=== PATIENT | female | born 2000 | race American Indian/Alaskan Native ===

== ENCOUNTER 2021-06-08 10:18 | Emergency (ER) | payer SELFPAY ==
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
[2021-06-08 11:52] VITALS: BP 129/71
== END 2021-06-08 11:51 | disposition home or self-care (01) ==
LOC: ED 10:18
DX: S63.690A Other sprain of right index finger, initial encounter (principal); S50.11XA Contusion of right forearm, initial encounter; S00.511A Abrasion of lip, initial encounter; V87.7XXA Person injured in collision between other specified motor vehicles (traffic), initial encounter; Y93.89 Activity, other specified; Y92.488 Other paved roadways as the place of occurrence of the external cause; Y99.8 Other external cause status
CPT/HCPCS: 99282

== ENCOUNTER 2022-02-19 00:18 | Emergency (ER) | payer MEDICAID ==
[2022-02-19 03:04] LABS: Basophils % (Auto) 0.2 % (0.0-1.8); Eosinophils # (Auto) 0.3 K/mm3 (0.0-0.4); Eosinophils % (Auto) 2.2 % (0.0-4.3); Hemoglobin 11.6 gm/dl (10.1-14.3); Lymphocytes # (Auto) 0.7 K/mm3 (1.2-5.4); Mean Corpuscular HGB Conc 33 % (30-34); Mean Corpuscular Volume 94 fl (79-97); Monocytes # (Auto) 0.7 K/mm3 (0.0-0.8); Monocytes % (Auto) 5.7 % (0.0-7.3); Platelet Count 276 K/mm3 (140-440); Red Blood Count 3.72 M/mm3 (3.65-5.03); Red Cell Distribution Width 13.7 % (13.2-15.2)
[2022-02-19 07:38] LABS: Bacteria,Urine 3+ /HPF (Negative); Mucus,Urine 2+ /HPF
[2022-02-19 07:52] LABS: Color,Urine Straw (Yellow)
--- NOTE | 2022-02-19 08:49 | Emergency Department Report ---
ED Female HPI - General Chief complaint: Vaginal Bleeding Stated complaint: 4 MONTHS IN PAIN Time Seen by Provider: 02/19/22 08:06 Source: patient Mode of arrival: Ambulatory Limitations: No Limitations - History of Present Illness Initial comments: PT C/O VAGINAL PAIN AND LOWER ABD PAIN, LMP 10/03/2021, PT STATES APROX 4 MONTHS , REPORTS VAGINAL SPOTTING TODAY Pt denies vag dischage. no dysuria. no back pain. no fever or chills. She is ambulatory to ER in [place] Complaint: vaginal bleeding -: Sudden, days(s) Severity scale (0 -10): 2 Quality: cramping Consistency: constant Improves with: none Worsens with: none Are you Now?: Yes Associated Symptoms: denies other symptoms, vaginal bleeding. denies: vaginal discharge, abdominal pain, nausea/vomiting, fever/chills - Related Data Sexually active: Yes : 1 Previous Rx's Medication Instructions Recorded Last Taken Type Amoxicillin [Trimox CAP] 500 mg PO BID #20 capsule 02/19/22 Unknown Rx Allergies Allergy/AdvReac Type Severity Reaction Status Date / Time No Known Allergies Allergy Verified 02/20/22 14:35 ED Review of Systems ROS: Stated complaint: 4 MONTHS IN PAIN Other details as noted in HPI Comment: All other systems reviewed and negative ED Past Medical Hx - Past Medical History Previous Medical History?: No - Surgical History Past Surgical History?: No - Family History Family history: no significant - Social History Smoking Status: Never Smoker Substance Use Type: None - Medications Home Medications: Home Medications Medication Instructions Recorded Confirmed Last Taken Type Amoxicillin [Trimox CAP] 500 mg PO BID #20 capsule 02/19/22 Unknown Rx ED Physical Exam - General Limitations: No Limitations General appearance: alert, in no apparent distress - Head Head exam: Present: atraumatic, normocephalic - Eye Eye exam: Present: normal appearance - ENT ENT exam: Present: mucous membranes moist - Neck Neck exam: Present: normal inspection - Respiratory Respiratory exam: Present: normal lung sounds bilaterally. Absent: respiratory distress - Cardiovascular Cardiovascular Exam: Present: regular rate, normal rhythm. Absent: systolic murmur, diastolic murmur, rubs, gallop - GI/Abdominal GI/Abdominal exam: Present: soft, normal bowel sounds - Extremities Exam Extremities exam: Present: normal inspection - Back Exam Back exam: Present: normal inspection - Neurological Exam Neurological exam: Present: alert, oriented X3 - Psychiatric Psychiatric exam: Present: normal affect, normal mood - Skin Skin exam: Present: warm, dry, intact, normal color. Absent: rash ED Course Vital Signs 02/19/22 02/19/22 02/19/22 02:16 05:52 08:14 Temperature 98.3 F 98.4 F 98.8 F Pulse Rate 106 H 103 H 107 H Respiratory 18 18 18 Rate Blood Pressure 139/75 Blood Pressure 155/71 127/73 [Right] O2 Sat by Pulse 98 100 100 Oximetry 02/19/22 10:57 Temperature 98.7 F Pulse Rate 90 Respiratory 16 Rate Blood Pressure Blood Pressure 128/80 [Right] O2 Sat by Pulse 100 Oximetry ED Medical Decision Making - Lab Data Result diagrams: 02/19/22 02:29 - Radiology Data Radiology results: report reviewed, image reviewed see report - Medical Decision Making Lab Results 02/19/22 02/19/22 02/19/22 Range/Units 02:29 02:29 02:29 WBC 12.0 H (4.5-11.0) K/mm3 RBC 3.72 (3.65-5.03) M/mm3 Hgb 11.6 (10.1-14.3) gm/dl Hct 35.0 (30.3-42.9) % MCV 94 (79-97) fl MCH 31 (28-32) pg MCHC 33 (30-34) % RDW 13.7 (13.2-15.2) % Plt Count 276 (140-440) K/mm3 Lymph % (Auto) 6.0 L (13.4-35.0) % [place] % (Auto) 5.7 (0.0-7.3) % Eos % (Auto) 2.2 (0.0-4.3) % Baso % (Auto) 0.2 (0.0-1.8) % Lymph # (Auto) 0.7 L (1.2-5.4) K/mm3 [place] # (Auto) 0.7 (0.0-0.8) K/mm3 Eos # (Auto) 0.3 (0.0-0.4) K/mm3 Baso # (Auto) 0.0 (0.0-0.1) K/mm3 Seg Neutrophils % 85.9 H (40.0-70.0) % Seg Neutrophils # 10.3 H (1.8-7.7) K/mm3 HCG, Qual Positive (Negative) HCG, Quant 85614 H (0-4) mIU/mL Urine Color (Yellow) Urine Turbidity (Clear) Specific [place] (Man) (1.003-1.030) Ur Protein (Man) (Negative) mg/dL Ur Ketones (Man) (Negative) Urine Bilirubin (Man) (Negative) Urine WBC (Auto) (0.0-6.0) /HPF Urine RBC (Auto) (0.0-6.0) /HPF U Epithel Cells (Auto) (0-13.0) /HPF Urine Bacteria (Auto) (Negative) /HPF Urine RBC (Manual) (Negative) Urine Mucus /HPF Blood Type 02/19/22 02/19/22 Range/Units 02:29 Unknown WBC (4.5-11.0) K/mm3 RBC (3.65-5.03) M/mm3 Hgb (10.1-14.3) gm/dl Hct (30.3-42.9) % MCV (79-97) fl MCH (28-32) pg MCHC (30-34) % RDW (13.2-15.2) % Plt Count (140-440) K/mm3 Lymph % (Auto) (13.4-35.0) % [place] % (Auto) (0.0-7.3) % Eos % (Auto) (0.0-4.3) % Baso % (Auto) (0.0-1.8) % Lymph # (Auto) (1.2-5.4) K/mm3 [place] # (Auto) (0.0-0.8) K/mm3 Eos # (Auto) (0.0-0.4) K/mm3 Baso # (Auto) (0.0-0.1) K/mm3 Seg Neutrophils % (40.0-70.0) % Seg Neutrophils # (1.8-7.7) K/mm3 HCG, Qual (Negative) HCG, Quant (0-4) mIU/mL Urine Color Straw (Yellow) Urine Turbidity Slightly cloudy (Clear) Specific [place] (Man) 1.015 (1.003-1.030) Ur Protein (Man) 1+ (Negative) mg/dL Ur Ketones (Man) Negative (Negative) Urine Bilirubin (Man) Negative (Negative) Urine WBC (Auto) 67.0 H (0.0-6.0) /HPF Urine RBC (Auto) 142.0 (0.0-6.0) /HPF U Epithel Cells (Auto) 9.0 (0-13.0) /HPF Urine Bacteria (Auto) 3+ (Negative) /HPF Urine RBC (Manual) 1+ (Negative) Urine Mucus 2+ /HPF Blood Type A POSITIVE Vital Signs 02/19/22 02/19/22 02/19/22 02:16 05:52 08:14 Temperature 98.3 F 98.4 F 98.8 F Pulse Rate 106 H 103 H 107 H Respiratory 18 18 18 Rate Blood Pressure 139/75 Blood Pressure 155/71 127/73 [Right] O2 Sat by Pulse 98 100 100 Oximetry labs noted ua noted rocephin IM in ER taking po US noted pt dc home with dc plan of care including diet, meds, activity and follow up. she will dc home on amox. We will need to call if her antibiotics need changed. - Differential Diagnosis ro uti/ab Critical care attestation.: If time is entered above; I have spent that time in minutes in the direct care of this critically ill patient, excluding procedure time. ED Disposition Clinical Impression: Qualifiers: Weeks of gestation: unspecified Qualified Code(s): Z34.90 - Encounter for supervision of normal , unspecified, unspecified trimester UTI (urinary tract infection) Qualifiers: Urinary tract infection type: site unspecified Disposition: 01 HOME / SELF CARE / HOMELESS Is pt being admited?: No Does the pt Need Aspirin: No Condition: Stable Instructions: First Trimester of , [id number] Additional Instructions: med as ordered today tylenol for pain follow up with objarocho jangp Prescriptions: Amoxicillin [Trimox CAP] 500 mg PO BID #20 capsule Referrals: DEAN NIELSEN MD [Primary Care Provider] - 3-5 Days Forms: Work/School Release Form(ED) Time of Disposition: 10:57
--- NOTE | 2022-02-19 09:42 | Ultrasound Report ---
ULTRASOUND OBSTETRIC COMPLETE INDICATION / CLINICAL INFORMATION: VAG BLEED. Clinical Gestational Age (GA) in weeks.days: 19.5 TECHNIQUE: Transabdominal. COMPARISON: None available. FINDINGS: NUMBER: Single PRESENTATION: breech PLACENTA: posterior and free of the os. MATERNAL ADNEXA: No significant abnormality. AMNIOTIC FLUID VOLUME: normal ANATOMY: organs (including the bladder, stomach, kidneys, heart, umbilical cord, diaphragm, cord inserti on, spine and intracranial structures) are visualized and show no significant abnormality with the fo llowing exception(s): Neuroanatomy. MEASUREMENTS: - Biparietal Diameter = 4.76 cm = 20.3 weeks.days - Head Circumference = 17.8 cm = 20.2 weeks.days - Abdominal Circumference = 15.49 cm = 20.5 weeks.days - Femur Length = 3.37 cm = 20.4 weeks.days - Estimated Weight (in grams, if calculated): 363 - Heart Rate (beats per minute): 153 ADDITIONAL FINDINGS: Cervical length 2.42 cm. PERCENTILE ESTIMATED WEIGHT (if calculated): AVERAGE ULTRASOUND AGE (AUA) in weeks.days = 20.4 IMPRESSION: 1. Single intrauterine with AUA of 20.4 weeks.days 2. No significant sonographic abnormality. Signer Name: Jass Church MD Signed: 02/19/2022 9:38 AM Workstation Name: [facility]
[2022-02-19] MEDS ORDERED: LIDOCAINE-MPF (1%) 10 MG/1 ML VIAL 5 ML INFILTRATI ONE (10:26)
[2022-02-19 10:58] VITALS: BP 128/80
== END 2022-02-19 11:08 | disposition home or self-care (01) ==
LOC: EDBD → MERGE 00:18 → ED 00:18
DX: O23.42 Unspecified infection of urinary tract in pregnancy, second trimester (principal); N39.0 Urinary tract infection, site not specified; Z3A.20 20 weeks gestation of pregnancy; Z79.899 Other long term (current) drug therapy
CPT/HCPCS: 36415; 76805; 81001; 84702; 84703; 85025; 86900; 86901; 87086; 96372; 99284; J0696; J3490